=== PATIENT | male | born 1980 ===

== ENCOUNTER 2020-04-25 07:08 | Emergency (ER) | payer OTHER ==
[~2020-04-25] VITALS: Ht 185.4 cm; Wt 99.8 kg
[2020-04-25] MEDS ORDERED: KETO10TA2 PO (10:58)
[2020-04-25] MEDS ORDERED: MUPIROCIN1 G1 TOP (10:58)
[2020-04-25] MEDS ORDERED: AMOX-CLAV 875-1 EACH PO (10:58)
[2020-04-25] MEDS ORDERED: HIBICLENS118 ML TOP (10:58)
== END 2020-04-25 11:07 | disposition home or self-care (01) ==
LOC: ER 07:08
DX: L03.113 Cellulitis of right upper limb (principal)